=== PATIENT | male | born 1975 | race Hispanic/Latino ===

== ENCOUNTER 2016-07-16 03:16 | Emergency (ER) | payer OTHER ==
[2016-07-16 03:40] VITALS: TEMP 98.5
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
[2016-07-16] MEDS ORDERED: Oxycodone/Acetaminophen 5/325 mg Tab PO STA (04:12)
[2016-07-16] MEDS ORDERED: Oxycodone/Acetaminophen 5/325 mg Tab ONE (04:15)
[2016-07-16 04:18] VITALS: BP 120/70; PULSE 70; RESP 14; O2SAT 98
== END 2016-07-16 04:18 | disposition home or self-care (01) ==
LOC: C.ER 03:16
DX: G89.29 Other chronic pain (principal); M54.5 Low back pain